=== PATIENT | male | born 1970 | race Caucasian/White ===

== ENCOUNTER → 2018-10-09 11:14 | Outpatient (CLI) | payer BC, SELFPAY ==
--- NOTE | 2018-10-09 11:21 | RAD_ITS ---
STUDY: X-RAY - ABDOMEN/PELVIS REASON FOR EXAM: Male, 48 years old. Right-sided renal stone. Pain. TECHNIQUE: Single AP view of the abdomen / pelvis. COMPARISON: None. FINDINGS: Normal visualized lung bases. There is a 7 mm calcification in the right midabdomen at the level of L2-L3 which could be a right renal or ureteral stone. Correlate with any prior studies. No other calcifications suspicious for renal or ureteral calculi are seen. There is an unremarkable bowel gas pattern. Moderate fecal retention. There is no demonstrated free abdominal air. The visualized liver, spleen and kidneys are grossly normal in size and morphology. Normal soft tissue structures. Normal visualized osseous structures. RAD/Abdomen Single View IMPRESSION: 7 mm right-sided calcification consistent with either right renal or more likely right ureteral stone. Electronically Signed: Ignacio Ni MD at 18:00 EST , Service support ,
== END ==
LOC: RAD 11:19
PROVIDERS: Referring Provider Urology; Visit Provider Urology
DX: N20.0 Calculus of kidney (principal)
CPT/HCPCS: 74018

== ENCOUNTER 2018-10-09 12:08 | Observation (INO) | payer BC, SELFPAY ==
[2018-10-09 12:56] VITALS: BMI 30.9
[2018-10-09 12:58] VITALS: BP 129/77; PULSE 68; RESP 16; TEMP 36.6; O2SAT 95
[2018-10-09 13:22] LABS: Absolute Lymphocyte Count 2.38 X10^3/ul (0.83-4.51); Absolute Neutrophil Count 8.4 X10^3/uL (2.0-7.7); Basophil# 0.01 X10^3/uL; Basophil% 0.1 % (0-1); Eosinophil# 0.11 X10^3/uL; Eosinophils% 0.9 % (0-5); Hematocrit 44.9 % (40-54); Hemoglobin 14.8 g/dl (13.0-16.5); Lymphocyte # 2.38 X10^3/ul (4.0); Lymphocyte % 19.9 % (19-41); Mean Corpuscular Hgb 28.5 pg (27.0-32.0); Mean Corpuscular Volume 86.5 fL (80-94); Mean Platelet Vol. 8.9 fl (6.2-12.0); Monocyte# 1.01 X10^3/uL; Monocyte% 8.4 % (0-10); Neutrophil # 8.44 X10^3/uL (2.7-7.7); Neutrophil % 70.5 % (47-70); Platelet Count 228 K/mm3 (150-450); RBC Distribution Width CV 13.9 % (11.6-14.6); RBC Distribution Width SD 43.8 fl (35.1-43.9); Red Blood Count 5.19 M/mm3 (4.6-6.2)
[2018-10-09 13:27] LABS: POSITIVE COUNT NO; POSITIVE DIFFERENTIAL NO; POSITIVE MORPHOLOGY NO
[2018-10-09 14:09] LABS: Anion Gap 8 (5-15); BUN 15 mg/dL (7-18); BUN/Creat Ratio 9.4 RATIO (10-20); Calcium,Total 8.6 mg/dL (8.5-10.1); Chloride 109 mmol/L (98-107); Creatinine, Serum 1.59 mg/dL (0.70-1.30); EST Glomerular Filtration Rate 49 mL/min (>60); Est Glom Filt Rate - Afr Amer 60 mL/min (>60); Estimated Creatinine Clearance 58.03 ml/min; Glucose 101 mg/dL (74-106); Potassium 3.9 mmol/L (3.5-5.1); Sodium Level 143 mmol/L (136-145)
[2018-10-09] MEDS: 0.9% Normal Saline 1,000 ML 100 ML IV (16:04)
--- NOTE | 2018-10-09 17:44 | PCM.HP.BLA ---
History and Physical Date of Admission: 10/09/18 48-year-old male presented to the outside emergency room at [facility] with a 9 mm stone in the right UPJ, the renal pelvis is been flank pain often on the right side, he has had kidney stones before. Review the xray today. ALLERGIES: None MEDICATIONS: None PSH: None NON- PSH: None PMH: None NON- PMH: None Immunizations: None FAMILY HISTORY: Cancer - Runs in Family Heart Disease - Runs in Family SOCIAL HISTORY: Marital Status: Preferred Language: Turkish; Race: White Current Smoking Status: Patient does not smoke anymore. Tobacco Use Assessment Completed: Used Tobacco in last 30 days? Smoking cessation counseling was provided. Does not use smokeless tobacco. Does not drink anymore. Does not use drugs. Has not had a blood transfusion. REVIEW OF SYSTEMS: Constitutional: Patient denies fever, chills, weight loss, and weight gain. Eyes: Patient denies blurry vision, cataracts, and glaucoma. Ears, Nose, Mouth, Throat: Patient denies hearing loss, sinus infections, and sleep apnea. Cardiovascular: Patient denies chest pains, swollen ankles, irregular heartbeat, and pacemaker/defib. Respiratory: Patient denies shortness of breath, wheezing, oxygen, and cpap machine. Gastrointestinal: Patient denies abdominal pain, diarrhea, constipation, nausea, and vomiting. Genitourinary: Patient denies frequent urination, urinary retention, get up at night to void, leakage of urine, painful urination, blood in the urine, frequent uti's, history of stones, difficulty starting stream, weak stream/scanty, and bedwetting. Musculoskeletal: Patient denies sore muscles, back pain, and gout. Integumentary/Skin: Patient denies rash, chronic itching, and skin cancer. Neurological: Patient denies falling/unsteady, paralysis, and stroke/tia. Hematologic/Lymphatic: Patient denies abnormal bleeding, blood transfusion, swollen lymph nodes, deep venous thrombosis, and pulmonary embolism. VITAL SIGNS: 10/09/2018 10:36 AM Weight 223 lb / 101.15 kg Height 70 in / 177.8 cm BP 144/90 mmHg BMI 32.0 kg/m? - BMI Counseling was provided. MULTI-SYSTEM PHYSICAL EXAMINATION: Constitutional: Well-nourished. No physical deformities. Normally developed. Good grooming. Neck: Neck symmetrical, not swollen. Normal tracheal position. Respiratory: No labored breathing, no use of accessory muscles. Cardiovascular: Normal temperature, normal extremity pulses, no swelling, no varicosities. Lymphatic: No enlargement of neck, axillae, groin. Skin: No paleness, no jaundice, no cyanosis. No lesion, no ulcer, no rash. Neurologic / Psychiatric: Oriented to time, oriented to place, oriented to person. No depression, no anxiety, no agitation. Gastrointestinal: No mass, no tenderness, no rigidity, non obese abdomen. Eyes: Normal conjunctivae. Normal eyelids. Ears, Nose, Mouth, and Throat: Left ear no scars, no lesions, no masses. Right ear no scars, no lesions, no masses. Nose no scars, no lesions, no masses. Normal hearing. Normal lips. Musculoskeletal: Normal gait and station of head and neck. PAST DATA REVIEWED: Source Of History: Patient Lab Test Review: Basic Metabolic Panel (BMP), CBC Records Review: Previous Doctor Records, Previous Hospital Records, Previous Patient Records X-Ray Review: C.T. Abdomen/Pelvis: Reviewed Films. Reviewed Report. Discussed With Patient. PROCEDURES: None ASSESSMENT: ICD-10 Details 1 : Calculus of kidney - N20.0 Right 2 Gross hematuria - R31.0 PLAN: Schedule Return Visit/Planned Activity: Admit to Hospital Procedure: Approximately 1 Day - Cysto Uretero Lithotripsy - 82961, right Document Letter(s): Created for Patient: Clinical Summary The risks, benefits, and some of the possible complications of the proposed procedure were discussed with the patient at length and in detail including the possibility of bladder injury, urethral injury, ureteral injury, ureteral biopsy, ureteral lesion resection, open nephrectomy, a bladder biopsy, retrograde pyelograms, resection of a bladder lesion, dilation of the urethra, a postoperative catheter, placement of a ureteral stent, and others. The possible need for further surgical procedures was discussed with the patient. The possible need for postoperative treatments including further surgical procedures, chemotherapy, immunotherapy, radiation therapy, and others was discussed with the patient. The possibility that this operative procedure might not to cure the underlying disease, that micrometastatic disease might already be present, and that this underlying disease might result in the of the patient was discussed. The general risks of the operative procedure and the perioperative period were discussed with the patient at length and in detail including swelling, pain, nausea, vomiting, fever, chills, infection, wound infection, sepsis, renal failure, internal or external bleeding, intraoperative bowel, organ or vascular injuries, postoperative formation of scar tissue, the need for blood transfusions, deep venous thrombosis or blood clots, pulmonary embolus, pneumonia, respiratory failure, heart attack, stroke, he and others. All of the patient's questions were answered and he voiced an understanding of these risks, benefits and possible complications. The patient gave fully informed consent to proceed with the procedure. Notes: 48-year-old male presented to the hospital with a 9 mm stone in the right renal pelvis UPJ area will do a KUB today if stone is visible on KUB them plan for shockwave lithotripsy for treatment of the kidney stone. stone visible on KUB patient came back doubled over in pain will admit to hospital.
[2018-10-09 20:24] VITALS: BP 150/91; PULSE 66; RESP 16; TEMP 36.9; O2SAT 97
[2018-10-10] VITALS (9 sets, daily range): BP systolic 123–151; BP diastolic 79–98; PULSE 62–82; RESP 16–18; TEMP 36.6–37.1; O2SAT 92–97; BMI 30.9
[2018-10-10] MEDS: 0.9% Normal Saline 1,000 ML 100 ML IV ×2 (01:35→11:27)
[2018-10-10] MEDS: Ketorolac 15 MG/ML Vial IV (14:15)
--- NOTE | 2018-10-10 15:26 | NURSING ---
report called to ac
--- NOTE | 2018-10-10 15:43 | PCM.PROGNOTE ---
Subjective: Admitted to the hospital for right renal stone 9 mm stone causing severe renal colic currently stable plan for surgery today - Physical Exam General: Alert, Oriented x3, Cooperative HEENT: Atraumatic, PERRLA, EOMI, Normocephalic Neck: Supple, No JVD, Negative Carotid Bruits Lungs: Clear to auscultation, Normal air movement Cardiovascular: Regular rate, No murmurs Abdomen: Bowel Sounds Present, Soft, Non Tender Extremities: No edema, Capillary Refill Less than 3 Seconds Skin: No rashes, No breakdown Musculoskeletal: No Tenderness to Palpation of Joints or Extremities Neurological: Cranial nerves II-XII grossly intact Psych/Mental Status: Normal Affect, Appropriate Vital Signs Temp Pulse Resp BP Pulse Ox 98.8 F 67 18 148/97 H 96 10/10/18 14:09 10/10/18 14:09 10/10/18 14:09 10/10/18 14:09 10/10/18 14:09 Oxygen Delivery Method Room Air Weight: 97.8 kg Body Mass Index (BMI) 30.9 Intake and Output for Last 24 Hours 10/08/18 10/09/18 10/10/18 23:59 23:59 23:59 Intake Total 749 / 749 2782 / 2782 Output Total 1650 / 1650 Balance 749 / 749 1132 / 1132 Medical Necessity - Tobacco Use Smoking Status: Never smoker
[2018-10-10] MEDS: Cefazolin 1 GM/50 ML BAG IV (17:34)
--- NOTE | 2018-10-10 17:40 | PCM.DC.URO ---
Discharge Diet: Light diet - advance as tolerated Discharge Activity: May Shower Call your doctor if your incision/area has: Continuous Slow Oozing, Sudden Increased Bleeding, Increased Pain/ Swelling, Increased Redness, Foul Smelling Discharge, Swelling at the incision site Call your doctor if you observe: Fever of 101 or Higher Suture Line Care: Avoid Pulling/Pushing, Avoid Pinching/Bending Instructions: Treating Kidney Stones: Ureteroscopic Stone Removal, Ureteral Stents Allergies/Adverse Reactions: Allergies No Known Allergies Allergy (Verified 10/09/18 12:41) Medications to take at Discharge Hydrocodone/Acetaminophen [[place] 5-325 Tablet] 1 ea PO Q6H PRN PRN 3 Days #10 tab 10/10/18 Phenazopyridine HCl [Pyridium] 100 mg PO TID PRN PRN #20 tab 10/10/18 Primary Care Physician: Care Physician,No Primary [Primary Care Provider] - Test Results: Test results from this visit will be discussed in further detail at your follow-up appointment, if applicable. Please Follow Up With: Sukhi Painter MD When: please call to make an appointment.
--- NOTE | 2018-10-10 17:43 | DCINST_ITS ---
Discharge Diet: Light diet - advance as tolerated Discharge Activity: May Shower Call your doctor if your incision/area has: Continuous Slow Oozing, Sudden Increased Bleeding, Increased Pain/ Swelling, Increased Redness, Foul Smelling Discharge, Swelling at the incision site Call your doctor if you observe: Fever of 101 or Higher Suture Line Care: Avoid Pulling/Pushing, Avoid Pinching/Bending Instructions: Treating Kidney Stones: Ureteroscopic Stone Removal, Ureteral Stents Allergies/Adverse Reactions: Allergies No Known Allergies Allergy (Verified 10/09/18 12:41) Medications to take at Discharge Hydrocodone/Acetaminophen [[place] 5-325 Tablet] 1 ea PO Q6H PRN PRN 3 Days #10 tab 10/10/18 Phenazopyridine HCl [Pyridium] 100 mg PO TID PRN PRN #20 tab 10/10/18 Primary Care Physician: Care Physician,No Primary [Primary Care Provider] - Test Results: Test results from this visit will be discussed in further detail at your follow- up appointment, if applicable. Please Follow Up With: Sukhi Painter MD When: please call to make an appointment.
--- NOTE | 2018-10-10 18:18 | OP.PCM_ITS ---
Report of Operation Date of Procedure: 10/10/18 Pre-Operative Diagnosis: Right renal calculi in the pelvis 9 mm Post-Operative Diagnosis: Same Surgery/Procedure Performed:: Cystoscopy, right ureteroscopy laser lithotripsy of stone, right retrograde pyelogram, balloon dilation of the right ureter and right stent placement Description of Surgical Findings:: 48-year-old male was admitted for renal colic on the right side from a stone causing obstruction in the right UPJ. Today were again taken to surgery for treatment of the stone and placement of a stent 48-year-old male taken back to the operating room at the smooth induction of general anesthesia he was placed supine on the table and then a dorsolithotomy position the penis testicles were prepped and draped in usual sterile fashion, we went into the bladder with a 21 [place] rigid cystourethroscope the entire length of the urethra was normal the prostate was normal no strictures or abnormalities prostate normal mild hyperplasia, the trigone was identified the right ureteral orifice was identified within the bladder there is no tumors or stones I think cannulated the right ureteral orifice with a Glidewire advanced a wire up into the kidney and then I advanced the balloon dilator over the wire balloon dilated the distal ureter once the distal ureter was completely.balloon dilated with a 4 Tajik 10 cm balloon dilator then pulled out the balloon dilator the wire placed over the wire went in with a flexible ureteroscope was able to put all the way up to the kidney once in the kidney then I found the stone in the renal pelvis stone was then lasered with laser lithotripsy and the little tiny fibers using a 270 ?m laser fiber. With the stone was completely lasered laser little tiny pieces that should all pass on their own then I performed a retrograde pyelogram, left the wire in place, over the wire load of the stent up into the right kidney left the string on the stent for easy extraction patient's anesthetic was reversed the bladder was drained and he will go home today after the procedure he will follow-up in a week with an x-ray to have the stent removed. Type of Anesthesia:: General Drains: stent right side. - Admit VTE Documentation VTE Present on Admission: No VTE Mechan Device Prophylaxis: SCD's
== END 2018-10-10 19:50 | disposition home or self-care (01) ==
PROVIDERS: Admitting Provider Urology; Referring Provider Urology; Visit Provider Urology
PROC: 0TJ98ZZ Inspection of Ureter, Via Natural or Artificial Opening Endoscopic (ICD-10-PCS; CPT 52352; principal; 2018-10-10 16:35)
DX: N20.0 Calculus of kidney (principal); I25.2 Old myocardial infarction; Z87.442 Personal history of urinary calculi
CPT/HCPCS: 52356; 36415; 76000; 80048; 85025; 93005; 96361; 96374; 99218; J7030; J7120; C1769; C2617; G0378; G0379; J2405

== ENCOUNTER → 2018-10-16 15:41 | Outpatient (CLI) | payer BC, SELFPAY ==
[2018-10-10 14:09] VITALS: BMI 30.9
--- NOTE | 2018-10-16 15:45 | RAD_ITS ---
STUDY: X-RAY - ABDOMEN/PELVIS REASON FOR EXAM: Male, 48 years old. Right-sided kidney stone, recent ureter stent insertion TECHNIQUE: Two AP supine views of the abdomen and pelvis. COMPARISON: 10/09/2018 FINDINGS: Right ureter stent extends from the right renal shadow to the lower pelvis. At L3 transverse process level, there is a faint density along the ureter stent measuring approximately 4 mm in region of calculus on the prior x-ray. There is an unremarkable bowel gas pattern. There is no demonstrated free abdominal air. The visualized liver, spleen are grossly normal in size and morphology. Normal soft tissue structures. There is mild dextroscoliosis. RAD/Abdomen Single View IMPRESSION: Right ureter stent. Possible adjacent calculus of the proximal right ureter (L3 level). Electronically Signed: Daniel Pearl MD at 15:16 EST , Service support ,
== END ==
LOC: RAD.FUTURE 15:42
PROVIDERS: Referring Provider Urology; Visit Provider Urology
DX: N20.0 Calculus of kidney (principal)
CPT/HCPCS: 74018

== ENCOUNTER → 2023-02-05 | Outpatient (CLI) | payer BC, SELFPAY | END | disposition home or self-care (01) | LOC: SL 10:52 | DX: G47.10 Hypersomnia, unspecified (principal) | CPT/HCPCS: 95806 ==